=== PATIENT | female | born 1985 | race Caucasian/White ===

== ENCOUNTER 2020-06-04 18:32 | Emergency (ER) | payer SELFPAY ==
[~2020-06-04] VITALS: Ht 162.5 cm; Wt 45.0 kg
--- NOTE | 2020-06-04 18:48 | ED Abdominal Pain ---
General Stated Complaint: ABD PAIN Source of Information: Patient Exam Limitations: No Limitations History of Present Illness Date Seen by Provider: Jun 04, 2020 Time Seen by Provider: 18:35 Initial Comments The patient is a 34-year-old female who presents to the emergency department via EMS for evaluation of abdominal pain over the last month. She states that she was cooking dinner this evening when the pain became more severe and she felt herself to the ground and remained in the position until EMS arrived. She saw her PCP who performed a pelvic exam, did labs, and an ultrasound for the exact same complaints she is having currently and this workup was unremarkable. Apparently it is felt that she may have endometriosis. She was given 100 mg of fentanyl in route. She is alert and oriented 4, calm, and appears to be in no distress this time. She denies nausea or vomiting, fevers or chills, back or flank pain, pelvic pain or bleeding. She states that she has been having some clear vaginal discharge for over a month and that it was present during her recent pelvic exam and has been unchanged. She states that there is no odor to it and it is thin. Timing/Duration: Other (1 month) Severity/Quality: Moderate Location: RLQ, LLQ, Suprapubic Radiation: No Radiation Activities at Onset: None Modifying Factors: Improves With Lying down (helps, position helps) Associated Symptoms: Denies Symptoms Allergies and Home Medications Allergies Coded Allergies: No Known Drug Allergies (Unverified , 06/04/20) Patient Home Medication List Home Medication List Reviewed: Yes Review of Systems Review of Systems Constitutional: no symptoms reported EENTM: No Symptoms Reported Respiratory: No Symptoms Reported Cardiovascular: No Symptoms Reported Gastrointestinal: No Symptoms Reported, Abdominal Pain Genitourinary: Discharge (clear, thin, present over 1 month, similar to previous non-infectious discharge) Musculoskeletal: no symptoms reported Skin: no symptoms reported Psychiatric/Neurological: No Symptoms Reported Endocrine: No Symptoms Reported Hematologic/Lymphatic: No Symptoms Reported All Other Systems Reviewed Negative Unless Noted: Yes Past Dpvrlxl-[id number]-Upczgy Hx Past Med/Social Hx: Reviewed Nursing Past Med/Soc Hx Physical Exam Vital Signs Vital Signs - First Documented 06/04/20 18:32 Temp 37.1 Pulse 88 Resp 16 B/P (MAP) 107/55 (72) Pulse Ox 99 O2 Delivery Room Air Capillary Refill : Height/Weight/BMI Height: '" Weight: lbs. oz. kg; BMI Method: General Appearance: WD/WN, no apparent distress HEENT: PERRL/EOMI, pharynx normal Neck: full range of motion, normal inspection Respiratory: lungs clear, normal breath sounds, no respiratory distress, no accessory muscle use Cardiovascular: regular rate, rhythm, no edema, no JVD Gastrointestinal: normal bowel sounds, soft, no pulsatile mass, tenderness (mild RLQ, LLQ, and suprapubic ttp) Genital/Rectal: other (pt declines pelvic examination) Extremities: non-tender, no pedal edema Back: normal inspection, no CVA tenderness, no vertebral tenderness Pelvic: other (pt declines pelvic examination) 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, no motor/sensory deficits, alert, normal mood/affect, oriented x 3 Skin: normal color, warm/dry Lymphatic: no adenopathy Progress/Results/Core Measures Results/Orders Lab Results Laboratory Tests Test 06/04/20 18:40 06/04/20 18:45 Range/Units White Blood Count 12.1 H 4.3-11.0 10^3/uL Red Blood Count 4.67 4.35-5.85 10^6/uL Hemoglobin 13.4 11.5-16.0 G/DL Hematocrit 39 35-52 % Mean Corpuscular Volume 83 80-99 FL Mean Corpuscular Hemoglobin 29 25-34 PG Mean Corpuscular Hemoglobin Concent 34 32-36 G/DL Red Cell Distribution Width 12.3 10.0-14.5 % Platelet Count 407 H 130-400 10^3/uL Mean Platelet Volume 9.9 7.4-10.4 FL Immature Granulocyte % (Auto) 0 % Neutrophils (%) (Auto) 58 42-75 % Lymphocytes (%) (Auto) 32 12-44 % Monocytes (%) (Auto) 6 0-12 % Eosinophils (%) (Auto) 4 0-10 % Basophils (%) (Auto) 1 0-10 % Neutrophils # (Auto) 7.0 1.8-7.8 X 10^3 Lymphocytes # (Auto) 3.9 1.0-4.0 X 10^3 Monocytes # (Auto) 0.7 0.0-1.0 X 10^3 Eosinophils # (Auto) 0.4 H 0.0-0.3 10^3/uL Basophils # (Auto) 0.1 0.0-0.1 10^3/uL Immature Granulocyte # (Auto) 0.0 0.0-0.1 10^3/uL Sodium Level 138 135-145 MMOL/L Potassium Level 3.4 L 3.6-5.0 MMOL/L Chloride Level 102 98-107 MMOL/L Carbon Dioxide Level 22 21-32 MMOL/L Anion Gap 14 5-14 MMOL/L Blood Urea Nitrogen 9 7-18 MG/DL Creatinine 0.71 0.60-1.30 MG/DL Estimat Glomerular Filtration Rate > 60 BUN/Creatinine Ratio 13 Glucose Level 101 70-105 MG/DL Calcium Level 9.1 8.5-10.1 MG/DL Corrected Calcium 8.5-10.1 MG/DL Total Bilirubin 0.5 0.1-1.0 MG/DL Aspartate Amino Transf (AST/SGOT) 16 5-34 U/L Alanine Aminotransferase (ALT/SGPT) 14 0-55 U/L Alkaline Phosphatase 66 40-136 U/L Total Protein 7.6 6.4-8.2 GM/DL Albumin 4.7 H 3.2-4.5 GM/DL Lipase 18 8-78 U/L Urine Color YELLOW Urine Clarity CLEAR Urine pH 7.5 5-9 Urine Specific [place] <=1.005 1.016-1.022 Urine Protein NEGATIVE NEGATIVE Urine Glucose (UA) NEGATIVE NEGATIVE Urine Ketones NEGATIVE NEGATIVE Urine Nitrite NEGATIVE NEGATIVE Urine Bilirubin NEGATIVE NEGATIVE Urine Urobilinogen 0.2 < = 1.0 MG/DL Urine Leukocyte Esterase NEGATIVE NEGATIVE Urine RBC (Auto) NEGATIVE NEGATIVE Urine RBC NONE /HPF Urine WBC 2-5 /HPF Urine Squamous Epithelial Cells 5-10 /HPF Urine Crystals NONE /LPF Urine Bacteria TRACE /HPF Urine Casts NONE /LPF Urine Mucus NEGATIVE /LPF Urine Culture Indicated NO My Orders Orders - HO MCGILL DO Comprehensive Metabolic Panel (06/04/20 18:33) Lipase (06/04/20 18:33) Ua Culture If Indicated (06/04/20 18:33) Ed Iv/Invasive Line Start (06/04/20 18:33) Cbc With Automated Diff (06/04/20 18:33) Urine Bedside (06/04/20 18:33) Nothing By Mouth (06/04/20 Dinner) Ct Abdomen/Pelvis W (06/04/20 18:41) Iohexol Injection (Omnipaque 350 Mg/Ml 1 (06/04/20 19:00) Received Contrast (Hold Metformin- Contr (06/04/20 19:00) Sodium Chloride Flush (Catheter Flush Sy (06/04/20 19:00) Ns (Ivpb) (Sodium Chloride 0.9% Ivpb Bag (06/04/20 19:00) Wet Prep (06/04/20 18:49) Neisseria Gonorrhea Swab (06/04/20 18:49) Chlamydia Trachomatis Swab (06/04/20 18:49) Potassium Chloride (Tablet) (K Dur Table (06/04/20 19:15) Medications Given in ED Current Medications Medications Dose Ordered Sig/Willam Route Start Time Stop Time Status Last Admin Dose Admin Iohexol 100 ml ONCE ONCE IV 06/04/20 19:00 06/04/20 19:01 DC 06/04/20 18:57 100 ML Sodium Chloride 10 ml NEEDED PRN IV 06/04/20 19:00 06/04/20 18:57 10 ML Sodium Chloride 100 ml ONCE ONCE IV 06/04/20 19:00 06/04/20 19:01 DC 06/04/20 18:57 80 ML Vital Signs/I&O 06/04/20 18:32 Temp 37.1 Pulse 88 Resp 16 B/P (MAP) 107/55 (72) Pulse Ox 99 O2 Delivery Room Air Progress Progress Note : Progress Note @1900 - Pt refused pelvic exam @1910 - Pt refused self-swabs for GC/Chlamydia/Wet prep. @1920 - Pt refused potassium tablet. Departure Impression Primary Impression: Chronic abdominal pain Additional Impression: Chronic pelvic pain in female Disposition: 01 HOME, SELF-CARE Condition: Stable Departure-Patient Inst. Referrals: [facility] [place] Patient Instructions: Acute Pelvic Pain, Chronic Pain (DC), Severe Abdominal Pain, Adult (DC) Add. Discharge Instructions: Follow-up with your primary care doctor and/or C[facility]PERATOR in the next 1-2 days. Take Tylenol or ibuprofen at home for pain relief is needed. Return to the emergency department for new or worsening symptoms. HO MCGILL DO Jun 04, 2020 18:48
[2020-06-04 18:52] LABS: WHITE BLOOD COUNT 12.1 10^3/uL (4.3-11.0)
[2020-06-04 18:53] LABS: BASOPHILS # (AUTO) 0.1 10^3/uL (0.0-0.1); BASOPHILS % (AUTO) 1 % (0-10); EOSINOPHILS # (AUTO) 0.4 10^3/uL (0.0-0.3); EOSINOPHILS % (AUTO) 4 % (0-10); HEMATOCRIT 39 % (35-52); HEMOGLOBIN 13.4 G/DL (11.5-16.0); LYMPHOCYTES # (AUTO) 3.9 X 10^3 (1.0-4.0); LYMPHOCYTES % (AUTO) 32 % (12-44); MEAN CORPUSCULAR HEMOGLOBIN 29 PG (25-34); MEAN CORPUSCULAR HGB CONC 34 G/DL (32-36); MEAN CORPUSCULAR VOLUME 83 FL (80-99); MEAN PLATELET VOLUME 9.9 FL (7.4-10.4); MONOCYTES # (AUTO) 0.7 X 10^3 (0.0-1.0); MONOCYTES % (AUTO) 6 % (0-12); NEUTROPHILS % (AUTO) 58 % (42-75); PLATELET COUNT 407 10^3/uL (130-400)
[2020-06-04 18:58] LABS: BACTERIA,URINE TRACE /HPF; BILIRUBIN,URINE NEGATIVE (NEGATIVE); CLARITY,URINE CLEAR; COLOR,URINE YELLOW; GLUCOSE, URINE (UA) NEGATIVE (NEGATIVE); KETONES,URINE NEGATIVE (NEGATIVE); LEUKOCYTE ESTERASE ,URINE NEGATIVE (NEGATIVE); NITRITE,URINE NEGATIVE (NEGATIVE); PH,URINE 7.5 (5-9); PROTEIN,URINE NEGATIVE (NEGATIVE)
[2020-06-04] MEDS ORDERED: NS 100 ML (IVPB) BAG IV ONE (19:00)
[2020-06-04] MEDS ORDERED: HOLD METFORMIN - RECEIVED CONTRAST 20 ML VIAL IV SCH (19:00)
[2020-06-04] MEDS ORDERED: IOHEXOL 350 MG/ML 100 ML (OMNIPAQUE 350) VIAL IV ONE (19:00)
[2020-06-04] MEDS ORDERED: CATHETER FLUSH 10 ML SYR IV PRN (19:00)
[2020-06-04 19:07] LABS: ALANINE AMINOTRANSFERASE 14 U/L (0-55); ALBUMIN 4.7 GM/DL (3.2-4.5); ALKALINE PHOSPHATASE 66 U/L (40-136); BILIRUBIN,TOTAL 0.5 MG/DL (0.1-1.0); BUN/CREATININE RATIO 13; CALCIUM 9.1 MG/DL (8.5-10.1); CARBON DIOXIDE 22 MMOL/L (21-32); CHLORIDE 102 MMOL/L (98-107); CREATININE SERUM 0.71 MG/DL (0.60-1.30); GFR ESTIMATED > 60; GLUCOSE 101 MG/DL (70-105); LIPASE 18 U/L (8-78); POTASSIUM 3.4 MMOL/L (3.6-5.0); SODIUM 138 MMOL/L (135-145); TOTAL PROTEIN 7.6 GM/DL (6.4-8.2)
--- NOTE | 2020-06-04 19:10 | NUR ---
This RN went into room to have patient collect vaginal swabs, pt refused.
[2020-06-04] MEDS ORDERED: KCL 20 MEQ TAB (K-DUR) PO ONE (19:15)
--- NOTE | 2020-06-04 19:23 | Diagnostic Imaging Report ---
PROCEDURE: CT abdomen and pelvis with contrast. TECHNIQUE: Multiple contiguous axial images were obtained through the abdomen and pelvis after administration of intravenous contrast. Auto Exposure Controls were utilized during the CT exam to meet ALARA standards for radiation dose reduction. All CT scans use one or more of the following dose optimizing techniques: automated exposure control, MA and/or KvP adjustment based on patient size and exam type or iterative reconstruction. INDICATION: Lower abdominal pain. COMPARISON: None. FINDINGS: The lung bases are clear. The gallbladder, solid organs, vascular structures and bowel are unremarkable. There is no free air or free fluid. The appendix is not seen with certainty. Physiologic follicles are seen on the left ovary. There are two fallopian tube clips present. The uterus appears unremarkable. Urinary bladder is decompressed. There is no hernia. No lymphadenopathy is seen. IMPRESSION: 1. Small physiologic follicles in the left ovary. No inflammatory process identified. 2. Appendix cannot be seen. There is no indirect signs of acute appendicitis. 3. No bowel obstruction, free air or free fluid. Dictated by: Dictated on workstation # [id number]
[2020-06-04 19:33] VITALS: BP 107/55
== END 2020-06-04 19:37 | disposition home or self-care (01) ==
LOC: ER FS 18:34
DX: R10.31 Right lower quadrant pain (principal); R10.32 Left lower quadrant pain; R10.2 Pelvic and perineal pain
CPT/HCPCS: 36415; 74177; 80053; 81000; 83690; 84703; 85025

== ENCOUNTER → 2022-11-19 | Outpatient (CLI) | payer BC ==
--- NOTE | 2022-11-19 12:33 | Diagnostic Imaging Report ---
History: Right shoulder pain TECHNIQUE: 4 views of the right shoulder COMPARISON: None FINDINGS: No acute fracture or dislocation is seen in the right shoulder. Alignment is normal and joint spaces are preserved. IMPRESSION: 1. No acute osseous abnormality in the right shoulder. Dictated by: Dictated on workstation # [id number]
--- NOTE | 2022-11-19 12:33 | Diagnostic Imaging Report ---
HISTORY: Neck pain TECHNIQUE: 5 views of the cervical spine COMPARISON: None FINDINGS: Alignment of the cervical spine is normal without spondylolisthesis. Vertebral body heights are preserved. 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 Disc heights generally appear preserved. There is a small calcification anterior to the C6-C7 disc level, may be from mild degenerative change. The atlantoaxial alignment appears normal throughout flexion and extension and no dynamic instability is seen. Prevertebral soft tissues appear normal. C1-C2 alignment is normal. IMPRESSION: 1. No acute osseous abnormality is seen in the cervical spine. No evidence of dynamic instability. Dictated by: Dictated on workstation # [id number]
== END ==
LOC: RAD FS 08:21
PROVIDERS: ATTEND Nurse Practitioner
DX: M54.2 Cervicalgia (principal); M25.511 Pain in right shoulder
CPT/HCPCS: 72050; 73030